=== PATIENT | male | born 2000 | race African-American/Black ===

== ENCOUNTER 2022-12-24 13:19 | Emergency (ER) | payer OTHER | END 2022-12-24 14:41 | disposition home or self-care (01) | LOC: CSHERS 13:19 | DX: J02.9 Acute pharyngitis, unspecified (principal) | CPT/HCPCS: 87081; 87430; 99283 ==

== ENCOUNTER 2023-04-14 07:07 | Emergency (ER) | payer BC, OTHER, SELFPAY ==
[2023-04-14] MEDS ORDERED: cefTRIAXone (ROCEPHIN) 500 MG VIAL ONE (07:27)
[2023-04-15 02:37] LABS: GC N.gonorrhoeae PCR,UrineVOID DETECTED (NotDetected)
[2023-04-15 02:57] LABS: Chlam.trachomatis by PCR,Urine *Indeterminate (NotDetected)
== END 2023-04-14 08:15 | disposition home or self-care (01) ==
LOC: CSHERS 07:07
DX: N45.1 Epididymitis (principal)
CPT/HCPCS: 76870; 87491; 87591; 93976; 96372; J0696